=== PATIENT | female | born 1965 | race Caucasian/White ===

== ENCOUNTER 2021-04-20 13:57 | Emergency (ER) | payer BC ==
[2021-04-20] MEDS ORDERED: Sodium Chloride 0.9% 10 ML Syringe FLUSH PRN (14:05)
[2021-04-20] MEDS ORDERED: HYDROmorphone 1 MG/ML Syringe IVPUSH ONE ×2 (14:22→15:49)
[2021-04-20] MEDS ORDERED: Ondansetron 4 MG/2 ML SDV IVPUSH ONE (14:26)
[2021-04-20] MEDS ORDERED: HYDROmorphone 0.5 MG/0.5 ML Syringe IVPUSH ONE (16:47)
== END 2021-04-20 18:36 | disposition home or self-care (01) ==
LOC: JD.ED 13:57
DX: S22.42XA Multiple fractures of ribs, left side, initial encounter for closed fracture (principal); S52.602A Unspecified fracture of lower end of left ulna, initial encounter for closed fracture; V80.010A Animal-rider injured by fall from or being thrown from horse in noncollision accident, initial encounter
CPT/HCPCS: 36415; 71101; 73110; 80053; 83690; 85025; 96374; 96375; 96376; 99284; J1170; J2405; 29125; 99285

== ENCOUNTER 2021-04-23 13:02 | Inpatient (IN) | payer BC ==
[2021-04-23] MEDS ORDERED: LORazepam 2 MG/ML SDV IVPUSH ONE (14:13)
[2021-04-23] MEDS ORDERED: HYDROmorphone 0.5 MG/0.5 ML Syringe IVPUSH ONE ×3 (14:13→17:39)
[2021-04-23] MEDS ORDERED: Sodium Chloride 0.9% 10 ML Syringe FLUSH PRN (14:13)
[2021-04-23] MEDS ORDERED: Sodium Chloride 0.9% 1,000 ML IV SCH (14:15)
[2021-04-23] MEDS ORDERED: Iopamidol 612 MG/ML 50 ML SDV IVPUSH ONE (15:42)
[2021-04-23] MEDS ORDERED: Iopamidol 612 MG/ML 100 ML Bottle IVPUSH ONE (15:42)
[2021-04-23] MEDS ORDERED: Albuterol/Ipratropium 3.0-0.5 MG/3 ML Neb Soln NEB PRN (19:56)
[2021-04-23] MEDS ORDERED: hydrALAZINE 20 MG/ML SDV IVPUSH PRN (20:02)
[2021-04-23] MEDS: HYDROmorphone 0.5 MG/0.5 ML Syringe IVPUSH PRN (21:40)
[2021-04-23] MEDS: Promethazine 12.5 MG in Sodium Chloride 0.9% 50 ML IV PRN (21:42)
[2021-04-23] MEDS: Enoxaparin 40 MG/0.4 ML Syringe SUBCUT SCH (22:27)
[2021-04-23] MEDS: Sodium Chloride 0.9% 1,000 ML IV SCH (22:33)
[2021-04-23] MEDS ORDERED: Magnesium Hydroxide 400 MG/5 ML Susp 30 ML Cup PO PRN (23:54)
[2021-04-24] MEDS: Promethazine 12.5 MG in Sodium Chloride 0.9% 50 ML IV PRN ×3 (04:49→23:37)
[2021-04-24] MEDS: HYDROmorphone 0.5 MG/0.5 ML Syringe IVPUSH PRN ×2 (04:51→08:49)
[2021-04-24] MEDS: Enoxaparin 40 MG/0.4 ML Syringe SUBCUT SCH (08:48)
[2021-04-24] MEDS: oxyCODONE 5 MG Tab PO PRN ×3 (14:15→23:26)
[2021-04-24] MEDS: Sodium Chloride 0.9% 1,000 ML IV SCH (17:18)
[2021-04-24] MEDS: Acetaminophen 325 MG Tab PO PRN (23:27)
[2021-04-25] MEDS: oxyCODONE 5 MG Tab PO PRN ×4 (03:20→20:27)
[2021-04-25] MEDS: Acetaminophen 325 MG Tab PO PRN ×3 (06:46→20:27)
[2021-04-25] MEDS: Enoxaparin 40 MG/0.4 ML Syringe SUBCUT SCH (08:17)
[2021-04-25] MEDS: Promethazine 12.5 MG in Sodium Chloride 0.9% 50 ML IV PRN (08:17)
[2021-04-25] MEDS ORDERED: Ondansetron 4 MG/2 ML SDV IVPUSH PRN (14:58)
[2021-04-25] MEDS ORDERED: Ondansetron 8 MG in Sodium Chloride 0.9% 50 ML IV PRN (15:07)
[2021-04-25] MEDS: Ketorolac 30 MG/ML SDV IVPUSH SCH ×2 (16:05→22:51)
[2021-04-26] MEDS: Acetaminophen 325 MG Tab PO PRN (02:24)
[2021-04-26] MEDS: oxyCODONE 5 MG Tab PO PRN ×2 (02:25→12:57)
[2021-04-26] MEDS: Ketorolac 30 MG/ML SDV IVPUSH SCH ×2 (04:56→09:32)
[2021-04-26] MEDS: Enoxaparin 40 MG/0.4 ML Syringe SUBCUT SCH (09:32)
== END 2021-04-26 13:23 | disposition home or self-care (01) | DRG 135 ==
LOC: JD.ED 13:02 → JD.MS 18:57 → OBSVTOIN 04-25 19:50
PROVIDERS: ADMIT Internal Medicine; ATTEND Internal Medicine
DX: S22.42XA Multiple fractures of ribs, left side, initial encounter for closed fracture (principal); S52.602A Unspecified fracture of lower end of left ulna, initial encounter for closed fracture; G44.319 Acute post-traumatic headache, not intractable; I69.354 Hemiplegia and hemiparesis following cerebral infarction affecting left non-dominant side; E86.0 Dehydration; J98.11 Atelectasis; Z20.822 Contact with and (suspected) exposure to COVID-19; Z90.710 Acquired absence of both cervix and uterus; W19.XXXA Unspecified fall, initial encounter
CPT/HCPCS: 36415; 71260; 71260-26; 74177; 74177-26; 80053; 85025; 97162-GP; 97530-GP; A9270-GY; J1170; J1650; J1885; J2060; J2550; J7030; Q9967; U0002